=== PATIENT | male | born 1950 | race Caucasian/White ===

== ENCOUNTER 2020-04-24 18:39 | Inpatient (IN) ==
[2020-04-24] MEDS ORDERED: Dexamethasone 4 MG/ML VIAL IVP ONE (20:12)
[2020-04-24 21:12] LABS: Basophils % 0.5 %; Eosinophils % 0.2 %; Hematocrit 35.9 % (37.5-50.1); Hemoglobin 12.1 g/dL (12.9-16.9); Immature Granulocytes % 0.7 % (0-4); Immature Platelets 7.2 % (1.1-6.1); Lymphocytes # 0.8 K/mcL (0.6-4.6); Lymphocytes % 18.5 %; Mean Corpuscular HGB Conc 33.7 g/dL (31.6-35.5); Mean Corpuscular Hemoglobin 28.8 pg (28.0-33.3); Mean Corpuscular Volume 85.5 fL (83.0-100.0); Mean Platelet Volume 11.1 fL (9.4-12.4); Monocytes # 0.7 K/mcL (0.0-1.3); Monocytes % 17.1 %; Neutrophils # 2.7 K/mcL (1.6-8.9); White Blood Count 4.3 K/mcL (4.3-11.1)
[2020-04-24 21:13] LABS: Platelet Count 96 K/mcL (140-400)
[2020-04-24 21:31] LABS: Alanine Aminotransferase 35 Units/L (7-52); Albumin 3.4 g/dL (3.5-5.7); Albumin/Globulin Ratio 1.3 (1.1-2.2); Alkaline Phosphatase 46 Units/L (34-104); Aspartate Amino Transferase 52 Units/L (13-39); BUN/Creatinine Ratio 17 (6-26); Bilirubin,Direct 0.1 mg/dL (0.0-0.2); Bilirubin,Indirect 0.4 mg/dL (0.0-1.0); Bilirubin,Total 0.5 mg/dL (0.3-1.0); Blood Urea Nitrogen 15 mg/dL (8-23); C-Reactive Protein 37 mg/L (Less than 10); Calcium 7.9 mg/dL (8.6-10.3); Carbon Dioxide 21 mEq/L (23-29); Chloride 91 mEq/L (98-107); Globulin 2.6 g/dL (2.4-3.5); Glucose 111 mg/dL (70-105); Lactate Dehydrogenase 203 Units/L (140-271); Magnesium 1.6 mg/dL (1.6-2.6); Osmolality,Calculated 258 (280-300); Phosphorous 3.5 mg/dL (2.7-4.5); Potassium 3.8 mEq/L (3.5-5.1); Sodium 123 mEq/L (136-145); Troponin I < 0.03 ng/mL (< 0.04); eGFR For African Americans > 60 (> 60); eGFR For Non-African Americans > 60 (> 60)
[2020-04-24 21:46] LABS: Bilirubin,Urine Negative (Negative); Blood,Urine Negative (Negative); Clarity,Urine Clear (Clear); Color,Urine Yellow (Yellow); Glucose,Urine (UA) Normal (Normal); Ketones,Urine Negative (Negative); Leukocyte Esterase,Urine Negative (Negative); Nitrite,Urine Negative (Negative); PH,Urine 6.5 pH Units (5.0-8.0); Protein,Urine Trace mg/dL (Neg-Trace); Specific Gravity,Urine 1.022 (1.010-1.025); Urobilinogen,Urine Normal (Normal)
[2020-04-24 21:47] LABS: Adenovirus Not Detected (Not Detect); Coronavirus 229E Not Detected (Not Detect); Coronavirus HKU1 Not Detected (Not Detect); Coronavirus NL63 Not Detected (Not Detect); Coronavirus OC43 Not Detected (Not Detect)
[2020-04-24 21:48] LABS: Bordetella Pertussis Not Detected (Not Detect); Chlamydophila pneumoniae Not Detected (Not Detect); Human Metapneumovirus Not Detected (Not Detect); Human Rhinovirus/Enterovirus Not Detected (Not Detect); Influenza A Subtype 2009 H1 Not Detected (Not Detect); Influenza B Not Detected (Not Detect); Mycoplasma pneumoniae Not Detected (Not Detect); Parainfluenza Virus 1 Not Detected (Not Detect); Parainfluenza Virus 2 Not Detected (Not Detect); Parainfluenza Virus 3 Not Detected (Not Detect); Parainfluenza Virus 4 Not Detected (Not Detect); Respiratory Syncytial Virus Not Detected (Not Detect); SARS-CoV-2 DETECTED (Not Detect)
[2020-04-24] MEDS ORDERED: cefTRIAXone 1,000 MG in Water for inj. (sterile) 10 ML IVP ONE (21:49)
[2020-04-24] MEDS ORDERED: Azithromycin 500 MG in 0.9 % Sodium Chloride 250 ML IVPB ONE (21:49)
[2020-04-24] MEDS ORDERED: 0.9 % Sodium Chloride 1,000 ML IVC SCH (22:15)
[2020-04-24] MEDS ORDERED: Acetaminophen 325 MG TABLET PO PRN (23:36)
[2020-04-24] MEDS ORDERED: Ondansetron ODT 4 MG TAB.RAPDIS SL PRN (23:36)
[2020-04-24] MEDS ORDERED: Naloxone 0.4 MG/ML INJ IVP PRN (23:36)
[2020-04-25 00:26] LABS: Bilirubin,Urine Negative (Negative); Blood,Urine Negative (Negative); Clarity,Urine Clear (Clear); Color,Urine Yellow (Yellow); Glucose,Urine (UA) Normal (Normal); Ketones,Urine Negative (Negative); Leukocyte Esterase,Urine Negative (Negative); Nitrite,Urine Negative (Negative); PH,Urine 6.5 pH Units (5.0-8.0); Protein,Urine Negative (Neg-Trace); Specific Gravity,Urine 1.016 (1.010-1.025); Urobilinogen,Urine Normal (Normal)
[2020-04-25 03:07] LABS: Basophils % 0.3 %; Hematocrit 36.9 % (37.5-50.1); Immature Granulocytes % 0.6 % (0-4); Red Cell Distribution Width 18.8 % (11.5-14.5)
[2020-04-25 03:09] LABS: Hemoglobin 11.9 g/dL (12.9-16.9); Immature Platelets 7.3 % (1.1-6.1); Lymphocytes # 0.4 K/mcL (0.6-4.6); Lymphocytes % 11.7 %; Mean Corpuscular HGB Conc 32.2 g/dL (31.6-35.5); Mean Corpuscular Hemoglobin 27.7 pg (28.0-33.3); Mean Corpuscular Volume 85.8 fL (83.0-100.0); Mean Platelet Volume 10.2 fL (9.4-12.4); Monocytes # 0.2 K/mcL (0.0-1.3); Monocytes % 6.3 %; Segmented Neutrophils % 81.1 %; White Blood Count 3.5 K/mcL (4.3-11.1)
[2020-04-25 03:12] LABS: INR 1.3; Prothrombin Time 14.5 Seconds (9.4-12.1)
[2020-04-25 03:14] LABS: Neutrophils # 2.8 K/mcL (1.6-8.9); Platelet Count 93 K/mcL (140-400)
[2020-04-25 03:20] LABS: BUN/Creatinine Ratio 18 (6-26); Blood Urea Nitrogen 16 mg/dL (8-23); Calcium 8.1 mg/dL (8.6-10.3); Carbon Dioxide 21 mEq/L (23-29); Chloride 92 mEq/L (98-107); Glucose 172 mg/dL (70-105); Magnesium 1.6 mg/dL (1.6-2.6); Osmolality,Calculated 261 (280-300); Phosphorous 3.4 mg/dL (2.7-4.5); Potassium 3.9 mEq/L (3.5-5.1); Sodium 123 mEq/L (136-145); eGFR For African Americans > 60 (> 60); eGFR For Non-African Americans > 60 (> 60)
[2020-04-25] MEDS: Furosemide 40 MG/4 ML VIAL IVP SCH (08:33)
[2020-04-25] MEDS ORDERED: Azithromycin 500 MG in 0.9 % Sodium Chloride 250 ML IVPB SCH (09:00)
[2020-04-25] MEDS ORDERED: *HR* Enoxaparin 30 MG/0.3 ML SYRINGE SQ SCH (09:00)
[2020-04-25] MEDS ORDERED: Dexamethasone 4 MG/ML VIAL IVP SCH (09:00)
[2020-04-25] MEDS ORDERED: cefTRIAXone 1,000 MG in 0.9 % Sodium Chloride Mini Bag 100 ML IVPB SCH (09:00)
[2020-04-25] MEDS ORDERED: Dexamethasone 4 MG/ML VIAL IVP ONE (15:36)
[2020-04-25] MEDS ORDERED: Benzonatate 100 MG CAPSULE PO PRN (15:38)
[2020-04-25] MEDS: Ipratropium 1 PUFF INHALER IH SCH ×3 (16:50→23:17)
[2020-04-25] MEDS: Metoprolol XL (24 HR) Succ 25 MG TAB.ER.24H PO SCH (20:24)
[2020-04-26] MEDS: Ipratropium 1 PUFF INHALER IH SCH ×6 (03:23→23:48)
[2020-04-26] MEDS ORDERED: *HR* Enoxaparin 40 MG/0.4 ML SYRINGE SQ SCH (06:00)
[2020-04-26 07:28] LABS: Basophils % 0.1 %; Red Blood Count 4.65 M/mcL (4.19-5.50)
[2020-04-26 07:30] LABS: Hematocrit 39.2 % (37.5-50.1); Hemoglobin 12.8 g/dL (12.9-16.9); Immature Granulocytes % 0.9 % (0-4); Immature Platelets 6.9 % (1.1-6.1); Lymphocytes # 0.7 K/mcL (0.6-4.6); Lymphocytes % 7.8 %; Mean Corpuscular HGB Conc 32.7 g/dL (31.6-35.5); Mean Corpuscular Hemoglobin 27.5 pg (28.0-33.3); Mean Corpuscular Volume 84.3 fL (83.0-100.0); Mean Platelet Volume 10.3 fL (9.4-12.4); Monocytes # 0.9 K/mcL (0.0-1.3); Monocytes % 9.3 %; Neutrophils # 7.5 K/mcL (1.6-8.9); Platelet Count 124 K/mcL (140-400); Red Cell Distribution Width 18.8 % (11.5-14.5); Segmented Neutrophils % 81.9 %; White Blood Count 9.1 K/mcL (4.3-11.1)
[2020-04-26] MEDS: Multivit/Ca/Min/Fe/FA 1 TAB TABLET PO SCH (07:30)
[2020-04-26] MEDS: Metoprolol XL (24 HR) Succ 25 MG TAB.ER.24H PO SCH ×2 (07:30→21:02)
[2020-04-26] MEDS: Cyanocobalamin (B-12) 1,000 MCG TABLET PO SCH (07:30)
[2020-04-26] MEDS: Cholecalciferol (D-3) 1,000 UNIT (25MCG) TABLET PO SCH (07:31)
[2020-04-26] MEDS: Dexamethasone Sodium Phos/PF 10 MG/ML VIAL IVP SCH (07:31)
[2020-04-26] MEDS: Furosemide 40 MG/4 ML VIAL IVP SCH (07:31)
[2020-04-26 07:52] LABS: Alanine Aminotransferase 32 Units/L (7-52); Albumin 3.7 g/dL (3.5-5.7); Albumin/Globulin Ratio 1.3 (1.1-2.2); Alkaline Phosphatase 53 Units/L (34-104); Aspartate Amino Transferase 53 Units/L (13-39); BUN/Creatinine Ratio 20 (6-26); Bilirubin,Total 0.4 mg/dL (0.3-1.0); Blood Urea Nitrogen 17 mg/dL (8-23); Calcium 8.8 mg/dL (8.6-10.3); Carbon Dioxide 22 mEq/L (23-29); Chloride 96 mEq/L (98-107); Globulin 2.8 g/dL (2.4-3.5); Glucose 147 mg/dL (70-105); Lactate Dehydrogenase 285 Units/L (140-271); Osmolality,Calculated 270 (280-300); Sodium 128 mEq/L (136-145); Total Protein 6.5 g/dL (6.4-8.9); eGFR For African Americans > 60 (> 60); eGFR For Non-African Americans > 60 (> 60)
[2020-04-26 08:06] LABS: Anisocytosis 1+ (Not Present); Poikilocytosis 1+ (Not Present)
[2020-04-26 08:08] LABS: Platelet Estimate Slight Decrease (Normal)
[2020-04-26 08:09] LABS: Ferritin 63 ng/mL (20-250)
[2020-04-26 13:25] LABS: C-Reactive Protein 20 mg/L (Less than 10)
[2020-04-26] MEDS ORDERED: ALPRAZolam 1 MG TABLET PO ONE (21:52)
[2020-04-27] MEDS ORDERED: ALPRAZolam 0.5 MG TABLET PO ONE (03:00)
[2020-04-27] MEDS: Ipratropium 1 PUFF INHALER IH SCH ×5 (03:41→19:48)
[2020-04-27 05:55] LABS: Basophils % 0.1 %; Hematocrit 39.6 % (37.5-50.1); Immature Granulocytes % 0.7 % (0-4); Lymphocytes # 0.7 K/mcL (0.6-4.6); Lymphocytes % 5.2 %; Mean Corpuscular HGB Conc 32.8 g/dL (31.6-35.5); Mean Corpuscular Hemoglobin 28.4 pg (28.0-33.3); Mean Corpuscular Volume 86.5 fL (83.0-100.0); Monocytes % 6.9 %; Neutrophils # 12.3 K/mcL (1.6-8.9); Platelet Count 145 K/mcL (140-400); Red Blood Count 4.58 M/mcL (4.19-5.50); Red Cell Distribution Width 18.9 % (11.5-14.5); Segmented Neutrophils % 87.1 %
[2020-04-27 05:56] LABS: White Blood Count 14.1 K/mcL (4.3-11.1)
[2020-04-27 06:21] LABS: Alanine Aminotransferase 33 Units/L (7-52); Albumin 3.6 g/dL (3.5-5.7); Albumin/Globulin Ratio 1.2 (1.1-2.2); Alkaline Phosphatase 55 Units/L (34-104); Aspartate Amino Transferase 52 Units/L (13-39); BUN/Creatinine Ratio 25 (6-26); Bilirubin,Total 0.6 mg/dL (0.3-1.0); Blood Urea Nitrogen 22 mg/dL (8-23); Calcium 8.9 mg/dL (8.6-10.3); Carbon Dioxide 25 mEq/L (23-29); Chloride 94 mEq/L (98-107); Globulin 2.9 g/dL (2.4-3.5); Glucose 144 mg/dL (70-105); Lactate Dehydrogenase 358 Units/L (140-271); Osmolality,Calculated 274 (280-300); Potassium 4.3 mEq/L (3.5-5.1); Sodium 129 mEq/L (136-145); Total Protein 6.5 g/dL (6.4-8.9); eGFR For African Americans > 60 (> 60); eGFR For Non-African Americans > 60 (> 60)
[2020-04-27 06:33] LABS: Ferritin 80 ng/mL (20-250)
[2020-04-27] MEDS: Cyanocobalamin (B-12) 1,000 MCG TABLET PO SCH (09:26)
[2020-04-27] MEDS: Multivit/Ca/Min/Fe/FA 1 TAB TABLET PO SCH (09:26)
[2020-04-27] MEDS: Dexamethasone Sodium Phos/PF 10 MG/ML VIAL IVP SCH (09:27)
[2020-04-27] MEDS: Cholecalciferol (D-3) 1,000 UNIT (25MCG) TABLET PO SCH (09:27)
[2020-04-27] MEDS: Metoprolol XL (24 HR) Succ 25 MG TAB.ER.24H PO SCH ×2 (09:27→19:49)
[2020-04-27] MEDS: Furosemide 40 MG/4 ML VIAL IVP SCH (09:28)
[2020-04-27 10:03] LABS: C-Reactive Protein 22 mg/L (Less than 10)
[2020-04-27] MEDS ORDERED: Furosemide 40 MG/4 ML VIAL IVP ONE (15:32)
[2020-04-27] MEDS: *HR* Heparin 5,000 UNIT/ML VIAL SQ SCH (16:39)
[2020-04-27] MEDS ORDERED: *HR* LORazepam 2 MG/ML VIAL IVP ONE (19:04)
[2020-04-28] MEDS: Ipratropium 1 PUFF INHALER IH SCH ×7 (00:02→23:23)
[2020-04-28 01:27] LABS: Basophils % 0.3 %; Hematocrit 41.2 % (37.5-50.1); Hemoglobin 13.5 g/dL (12.9-16.9); Lymphocytes # 0.9 K/mcL (0.6-4.6); Lymphocytes % 6.6 %; Mean Corpuscular HGB Conc 32.8 g/dL (31.6-35.5); Mean Corpuscular Hemoglobin 27.8 pg (28.0-33.3); Mean Corpuscular Volume 84.9 fL (83.0-100.0); Mean Platelet Volume 10.2 fL (9.4-12.4); Monocytes # 0.8 K/mcL (0.0-1.3); Monocytes % 5.9 %; Neutrophils # 11.2 K/mcL (1.6-8.9); Platelet Count 115 K/mcL (140-400); Red Blood Count 4.85 M/mcL (4.19-5.50); Red Cell Distribution Width 18.8 % (11.5-14.5); Segmented Neutrophils % 86.2 %
[2020-04-28 01:37] LABS: Alanine Aminotransferase 37 Units/L (7-52); Albumin 3.6 g/dL (3.5-5.7); Albumin/Globulin Ratio 1.1 (1.1-2.2); Alkaline Phosphatase 60 Units/L (34-104); Aspartate Amino Transferase 50 Units/L (13-39); BUN/Creatinine Ratio 34 (6-26); Bilirubin,Total 0.7 mg/dL (0.3-1.0); Blood Urea Nitrogen 30 mg/dL (8-23); Calcium 8.6 mg/dL (8.6-10.3); Carbon Dioxide 25 mEq/L (23-29); Chloride 93 mEq/L (98-107); Globulin 3.2 g/dL (2.4-3.5); Glucose 148 mg/dL (70-105); Osmolality,Calculated 275 (280-300); Potassium 4.4 mEq/L (3.5-5.1); Sodium 128 mEq/L (136-145); Total Protein 6.8 g/dL (6.4-8.9); eGFR For African Americans > 60 (> 60); eGFR For Non-African Americans > 60 (> 60)
[2020-04-28] MEDS: *HR* Heparin 5,000 UNIT/ML VIAL SQ SCH ×2 (05:50→17:05)
[2020-04-28] MEDS: Furosemide 40 MG/4 ML VIAL IVP SCH (07:54)
[2020-04-28] MEDS: Cyanocobalamin (B-12) 1,000 MCG TABLET PO SCH (07:54)
[2020-04-28] MEDS: Multivit/Ca/Min/Fe/FA 1 TAB TABLET PO SCH (07:54)
[2020-04-28] MEDS: Cholecalciferol (D-3) 1,000 UNIT (25MCG) TABLET PO SCH (07:54)
[2020-04-28] MEDS: Metoprolol XL (24 HR) Succ 25 MG TAB.ER.24H PO SCH ×2 (07:54→19:48)
[2020-04-28] MEDS: Dexamethasone Sodium Phos/PF 10 MG/ML VIAL IVP SCH (07:55)
[2020-04-28] MEDS ORDERED: Furosemide 40 MG/4 ML VIAL IVP ONE (14:00)
[2020-04-28] MEDS ORDERED: *HR* LORazepam 2 MG/ML VIAL IVP ONE ×2 (17:36→22:56)
[2020-04-28] MEDS: Fluticasone Propionate Nasal 50 MCG/SPRAY BOTTLE NS SCH (19:48)
[2020-04-29] MEDS: Ipratropium 1 PUFF INHALER IH SCH ×5 (03:15→20:40)
[2020-04-29] MEDS: *HR* Heparin 5,000 UNIT/ML VIAL SQ SCH (05:49)
[2020-04-29 06:36] LABS: Basophils % 0.3 %; Hematocrit 40.2 % (37.5-50.1); Hemoglobin 13.3 g/dL (12.9-16.9); Immature Granulocytes % 0.9 % (0-4); Lymphocytes % 7.1 %; Mean Corpuscular HGB Conc 33.1 g/dL (31.6-35.5); Mean Corpuscular Hemoglobin 28.1 pg (28.0-33.3); Mean Platelet Volume 10.3 fL (9.4-12.4); Monocytes % 6.7 %; Neutrophils # 12.5 K/mcL (1.6-8.9); Platelet Count 147 K/mcL (140-400); Red Blood Count 4.73 M/mcL (4.19-5.50); Red Cell Distribution Width 18.2 % (11.5-14.5); White Blood Count 14.7 K/mcL (4.3-11.1)
[2020-04-29 07:11] LABS: Platelet Estimate Normal (Normal); Reactive Lymphocytes Present (Not Present)
[2020-04-29] MEDS: Metoprolol XL (24 HR) Succ 25 MG TAB.ER.24H PO SCH ×2 (07:22→20:06)
[2020-04-29] MEDS: Multivit/Ca/Min/Fe/FA 1 TAB TABLET PO SCH (07:22)
[2020-04-29] MEDS: Cholecalciferol (D-3) 1,000 UNIT (25MCG) TABLET PO SCH (07:23)
[2020-04-29] MEDS: Fluticasone Propionate Nasal 50 MCG/SPRAY BOTTLE NS SCH (07:23)
[2020-04-29] MEDS: Cyanocobalamin (B-12) 1,000 MCG TABLET PO SCH (07:24)
[2020-04-29 07:41] LABS: Alanine Aminotransferase 35 Units/L (7-52); Albumin 3.6 g/dL (3.5-5.7); Albumin/Globulin Ratio 1.2 (1.1-2.2); Alkaline Phosphatase 63 Units/L (34-104); Aspartate Amino Transferase 49 Units/L (13-39); BUN/Creatinine Ratio 37 (6-26); Bilirubin,Total 0.8 mg/dL (0.3-1.0); Blood Urea Nitrogen 32 mg/dL (8-23); Calcium 8.8 mg/dL (8.6-10.3); Carbon Dioxide 24 mEq/L (23-29); Chloride 92 mEq/L (98-107); Glucose 134 mg/dL (70-105); Lactate Dehydrogenase 522 Units/L (140-271); Osmolality,Calculated 277 (280-300); Potassium 4.2 mEq/L (3.5-5.1); Sodium 129 mEq/L (136-145); Total Protein 6.6 g/dL (6.4-8.9); eGFR For African Americans > 60 (> 60); eGFR For Non-African Americans > 60 (> 60)
[2020-04-29 07:45] LABS: Ferritin 113 ng/mL (20-250)
[2020-04-29] MEDS: Furosemide 40 MG/4 ML VIAL IVP SCH (10:36)
[2020-04-29] MEDS: Dexamethasone Sodium Phos/PF 10 MG/ML VIAL IVP SCH (10:37)
[2020-04-29 10:50] LABS: C-Reactive Protein 12 mg/L (Less than 10)
[2020-04-29] MEDS: *HR* LORazepam 2 MG/ML VIAL IVP PRN ×3 (13:57→22:03)
[2020-04-29] MEDS: Haloperidol Lactate 5 MG/ML VIAL IVP PRN ×2 (15:20→19:52)
[2020-04-30] MEDS: Ipratropium 1 PUFF INHALER IH SCH ×7 (00:22→23:11)
[2020-04-30] MEDS: Haloperidol Lactate 5 MG/ML VIAL IVP PRN ×2 (02:49→22:51)
[2020-04-30] MEDS: *HR* Enoxaparin 40 MG/0.4 ML SYRINGE SQ SCH (05:15)
[2020-04-30] MEDS: Dexamethasone Sodium Phos/PF 10 MG/ML VIAL IVP SCH (08:56)
[2020-04-30] MEDS: Furosemide 40 MG/4 ML VIAL IVP SCH (08:57)
[2020-04-30] MEDS: Fluticasone Propionate Nasal 50 MCG/SPRAY BOTTLE NS SCH (08:59)
[2020-04-30] MEDS: Metoprolol XL (24 HR) Succ 25 MG TAB.ER.24H PO SCH ×2 (08:59→20:29)
[2020-04-30] MEDS: Cyanocobalamin (B-12) 1,000 MCG TABLET PO SCH (08:59)
[2020-04-30] MEDS: Cholecalciferol (D-3) 1,000 UNIT (25MCG) TABLET PO SCH (08:59)
[2020-04-30] MEDS: Multivit/Ca/Min/Fe/FA 1 TAB TABLET PO SCH (08:59)
[2020-04-30] MEDS: *HR* LORazepam 2 MG/ML VIAL IVP PRN ×2 (11:57→20:29)
[2020-04-30] MEDS: Morphine Sulfate Oral CONC 10 MG/0.5 ML ORAL.SYG SL PRN ×2 (11:58→22:50)
[2020-05-01] MEDS: Ipratropium 1 PUFF INHALER IH SCH ×5 (03:26→19:35)
[2020-05-01] MEDS: *HR* Enoxaparin 40 MG/0.4 ML SYRINGE SQ SCH (05:22)
[2020-05-01 07:20] LABS: Hematocrit 40.6 % (37.5-50.1); Red Cell Distribution Width 17.7 % (11.5-14.5)
[2020-05-01 07:22] LABS: Hemoglobin 13.1 g/dL (12.9-16.9); Immature Platelets 6.8 % (1.1-6.1); Mean Corpuscular HGB Conc 32.3 g/dL (31.6-35.5); Mean Corpuscular Hemoglobin 27.8 pg (28.0-33.3); Mean Corpuscular Volume 86.2 fL (83.0-100.0); Mean Platelet Volume 10.4 fL (9.4-12.4); Red Blood Count 4.71 M/mcL (4.19-5.50); White Blood Count 13.3 K/mcL (4.3-11.1)
[2020-05-01 07:40] LABS: BUN/Creatinine Ratio 39 (6-26); Blood Urea Nitrogen 43 mg/dL (8-23); Calcium 8.7 mg/dL (8.6-10.3); Carbon Dioxide 29 mEq/L (23-29); Chloride 93 mEq/L (98-107); Glucose 176 mg/dL (70-105); Magnesium 2.5 mg/dL (1.6-2.6); Osmolality,Calculated 287 (280-300); Potassium 4.5 mEq/L (3.5-5.1); Sodium 131 mEq/L (136-145); eGFR For African Americans > 60 (> 60); eGFR For Non-African Americans > 60 (> 60)
[2020-05-01] MEDS: Multivit/Ca/Min/Fe/FA 1 TAB TABLET PO SCH (08:28)
[2020-05-01] MEDS: Cholecalciferol (D-3) 1,000 UNIT (25MCG) TABLET PO SCH (08:28)
[2020-05-01] MEDS: Cyanocobalamin (B-12) 1,000 MCG TABLET PO SCH (08:29)
[2020-05-01] MEDS: Metoprolol XL (24 HR) Succ 25 MG TAB.ER.24H PO SCH ×2 (08:29→21:01)
[2020-05-01] MEDS: Dexamethasone Sodium Phos/PF 10 MG/ML VIAL IVP SCH (08:30)
[2020-05-01] MEDS: Furosemide 40 MG/4 ML VIAL IVP SCH (08:30)
[2020-05-01] MEDS: Fluticasone Propionate Nasal 50 MCG/SPRAY BOTTLE NS SCH (08:47)
[2020-05-01] MEDS: *HR* LORazepam 2 MG/ML VIAL IVP PRN (21:23)
[2020-05-02] MEDS: Ipratropium 1 PUFF INHALER IH SCH ×7 (00:05→23:10)
[2020-05-02] MEDS: *HR* LORazepam 2 MG/ML VIAL IVP PRN ×3 (03:09→21:49)
[2020-05-02 05:06] LABS: VBG HCO3 31 mEq/L (21-27); VBG PCO2 50 mmHg (41-51); VBG PO2 47 mmHg (25-50)
[2020-05-02 05:13] LABS: BUN/Creatinine Ratio 45 (6-26); Blood Urea Nitrogen 45 mg/dL (8-23); Calcium 8.9 mg/dL (8.6-10.3); Carbon Dioxide 32 mEq/L (23-29); Chloride 90 mEq/L (98-107); Glucose 154 mg/dL (70-105); Osmolality,Calculated 289 (280-300); Potassium 4.3 mEq/L (3.5-5.1); Sodium 132 mEq/L (136-145); eGFR For African Americans > 60 (> 60); eGFR For Non-African Americans > 60 (> 60)
[2020-05-02] MEDS: *HR* Enoxaparin 40 MG/0.4 ML SYRINGE SQ SCH (05:25)
[2020-05-02] MEDS: Dexamethasone Sodium Phos/PF 10 MG/ML VIAL IVP SCH (10:47)
[2020-05-02] MEDS: Cholecalciferol (D-3) 1,000 UNIT (25MCG) TABLET PO SCH (10:48)
[2020-05-02] MEDS: Cyanocobalamin (B-12) 1,000 MCG TABLET PO SCH (10:48)
[2020-05-02] MEDS: Metoprolol XL (24 HR) Succ 25 MG TAB.ER.24H PO SCH ×2 (10:49→19:50)
[2020-05-02] MEDS: Multivit/Ca/Min/Fe/FA 1 TAB TABLET PO SCH (10:49)
[2020-05-02] MEDS: Morphine Sulfate Oral CONC 10 MG/0.5 ML ORAL.SYG SL PRN (15:37)
[2020-05-02] MEDS: Haloperidol Lactate 5 MG/ML VIAL IVP PRN ×2 (15:41→19:50)
[2020-05-02] MEDS: Fluticasone Propionate Nasal 50 MCG/SPRAY BOTTLE NS SCH (17:03)
[2020-05-03] MEDS: Morphine Sulfate Oral CONC 10 MG/0.5 ML ORAL.SYG SL PRN (00:01)
[2020-05-03] MEDS: *HR* LORazepam 2 MG/ML VIAL IVP PRN (03:08)
[2020-05-03] MEDS: Haloperidol Lactate 5 MG/ML VIAL IVP PRN ×4 (04:14→23:41)
[2020-05-03] MEDS: Ipratropium 1 PUFF INHALER IH SCH ×6 (04:22→23:48)
[2020-05-03] MEDS: *HR* Enoxaparin 40 MG/0.4 ML SYRINGE SQ SCH (05:25)
[2020-05-03] MEDS: Dexamethasone Sodium Phos/PF 10 MG/ML VIAL IVP SCH (08:53)
[2020-05-03] MEDS ORDERED: Furosemide 20 MG/2 ML VIAL IVP SCH (09:00)
[2020-05-03] MEDS: Multivit/Ca/Min/Fe/FA 1 TAB TABLET PO SCH (11:10)
[2020-05-03] MEDS: Fluticasone Propionate Nasal 50 MCG/SPRAY BOTTLE NS SCH (11:10)
[2020-05-03] MEDS: Cholecalciferol (D-3) 1,000 UNIT (25MCG) TABLET PO SCH (11:11)
[2020-05-03] MEDS: Cyanocobalamin (B-12) 1,000 MCG TABLET PO SCH (11:11)
[2020-05-03] MEDS: Metoprolol XL (24 HR) Succ 25 MG TAB.ER.24H PO SCH (11:11)
[2020-05-04] MEDS: Ipratropium 1 PUFF INHALER IH SCH ×5 (03:39→20:09)
[2020-05-04] MEDS: *HR* Enoxaparin 40 MG/0.4 ML SYRINGE SQ SCH (04:48)
[2020-05-04 07:53] LABS: BUN/Creatinine Ratio 51 (6-26); Blood Urea Nitrogen 68 mg/dL (8-23); Calcium 9.4 mg/dL (8.6-10.3); Carbon Dioxide 24 mEq/L (23-29); Chloride 94 mEq/L (98-107); Glucose 183 mg/dL (70-105); Osmolality,Calculated 304 (280-300); Potassium 4.7 mEq/L (3.5-5.1); Sodium 135 mEq/L (136-145); eGFR For African Americans > 60 (> 60); eGFR For Non-African Americans 52 (> 60)
[2020-05-04 07:57] LABS: Hematocrit 43.9 % (37.5-50.1); Hemoglobin 14.5 g/dL (12.9-16.9); Mean Corpuscular Volume 84.9 fL (83.0-100.0); Mean Platelet Volume 11.6 fL (9.4-12.4); Platelet Count 133 K/mcL (140-400); Red Blood Count 5.17 M/mcL (4.19-5.50); Red Cell Distribution Width 17.9 % (11.5-14.5)
[2020-05-04 07:58] LABS: White Blood Count 26.6 K/mcL (4.3-11.1)
[2020-05-04] MEDS: Multivit/Ca/Min/Fe/FA 1 TAB TABLET PO SCH (08:45)
[2020-05-04] MEDS: Cholecalciferol (D-3) 1,000 UNIT (25MCG) TABLET PO SCH (08:45)
[2020-05-04] MEDS: Cyanocobalamin (B-12) 1,000 MCG TABLET PO SCH (08:45)
[2020-05-04] MEDS: Dexamethasone Sodium Phos/PF 10 MG/ML VIAL IVP SCH (08:47)
[2020-05-04] MEDS: Fluticasone Propionate Nasal 50 MCG/SPRAY BOTTLE NS SCH (08:48)
[2020-05-04] MEDS ORDERED: *HR* Enoxaparin 80 MG/0.8 ML SYRINGE SQ ONE (08:49)
[2020-05-04] MEDS ORDERED: cefTRIAXone 1,000 MG in Water for inj. (sterile) 10 ML IVP SCH (09:00)
[2020-05-04 09:01] LABS: C-Reactive Protein 40 mg/L (Less than 10)
[2020-05-04] MEDS ORDERED: Perflutren Lipid Microsphere 1.3 ML in 0.9 % Sodium Chloride 8.7 ML IVP PRN (11:31)
[2020-05-04] MEDS ORDERED: Aspirin 325 MG TABLET PO ONE (11:53)
[2020-05-04] MEDS: Metoprolol XL (24 HR) Succ 25 MG TAB.ER.24H PO SCH (12:13)
[2020-05-04] MEDS: Morphine Sulfate Oral CONC 10 MG/0.5 ML ORAL.SYG SL PRN (13:32)
[2020-05-04] MEDS ORDERED: *HR* Enoxaparin 120 MG/0.8 ML SYRINGE SQ SCH (18:00)
[2020-05-04] MEDS ORDERED: *HR* Heparin 5,000 UNIT/ML VIAL IVP PRN ×2 (20:55)
[2020-05-04] MEDS ORDERED: *HR* Heparin 5,000 UNIT/ML VIAL IVP ONE (20:55)
[2020-05-04] MEDS ORDERED: *HR* Metoprolol 5 MG/5 ML VIAL IVP PRN (20:57)
[2020-05-04] MEDS ORDERED: Heparin 25,000UNIT/250ML 1/2NS 25,000 UNIT/250 ML IV.SOLN IVC SCH (21:00)
[2020-05-04] MEDS ORDERED: Vancomycin 2,000 MG/520 ML IV.SOLN IVPB SCH (21:00)
[2020-05-04 21:39] LABS: Hematocrit 46.4 % (37.5-50.1); Mean Corpuscular HGB Conc 32.3 g/dL (31.6-35.5); Mean Corpuscular Hemoglobin 27.7 pg (28.0-33.3); Mean Corpuscular Volume 85.8 fL (83.0-100.0); Mean Platelet Volume 10.8 fL (9.4-12.4); Red Blood Count 5.41 M/mcL (4.19-5.50); Red Cell Distribution Width 18.3 % (11.5-14.5)
[2020-05-04 21:44] LABS: Heparin anti-factor XA UFH 0.68 IU/mL (0.30-0.70); White Blood Count 30.3 K/mcL (4.3-11.1)
[2020-05-04 21:45] LABS: INR 1.6; Prothrombin Time 18.5 Seconds (9.4-12.1)
[2020-05-04 21:47] LABS: Activated Partial Thrombo Time 27.5 Seconds (26.0-36.0)
[2020-05-04] MEDS ORDERED: 0.9 % Sodium Chloride 1,000 ML IV ONE (22:30)
[2020-05-05] MEDS ORDERED: Piperacillin/Tazobactam 3.375 GM in 0.9 % Sodium Chloride Mini Bag 100 ML IVPB SCH
[2020-05-05] MEDS: Ipratropium 1 PUFF INHALER IH SCH (00:05)
[2020-05-05] MEDS ORDERED: *HR* LORazepam 2 MG/ML VIAL IVP PRN (00:43)
[2020-05-05] MEDS ORDERED: Morphine Sulfate Oral CONC 10 MG/0.5 ML ORAL.SYG SL PRN (01:29)
[2020-05-05] MEDS ORDERED: *HR* LORazepam Oral Conc 2 MG/ML SL PRN (01:29)
[2020-05-05] MEDS: *HR* LORazepam 2 MG/ML VIAL IVP PRN ×2 (05:56→09:28)
[2020-05-05] MEDS: *HR* FentaNYL (PF) 100 MCG/2 ML VIAL IVP PRN ×2 (05:58→09:29)
[2020-05-05] MEDS ORDERED: Pantoprazole 40 MG VIAL IVP SCH (06:30)
[2020-05-05 07:25] VITALS: BP 122/68
[2020-05-05] MEDS: Dexamethasone Sodium Phos/PF 10 MG/ML VIAL IVP SCH (09:30)
== END 2020-05-05 14:17 | disposition expired | DRG 177 ==
LOC: 2NENU 18:39 → EMEROOARM 18:39 → SUATTDRO 22:11 → 2NENU 23:14 → SUATTDRO 04-25 14:49 → 2NENU 05-03 20:41
PROVIDERS: ADMIT Internal Medicine; ATTEND Internal Medicine